=== PATIENT | female | born 1950 | race Caucasian/White ===

== ENCOUNTER 2020-07-11 17:35 | Emergency (ER) | payer MEDICARE, OTHER ==
[~2020-07-11 17:35] MED LIST: CYCLOBENZAPRINE10 MG PO; ETODOLAC ER500 MG PO; FLEXERIL 10 MG10 MG PO; FLOVENT 44 MCG7.9 GM INH; HYDROXYZINE HCL10 MG PO; MEDROL DOSEPAK 24 MG PO; MELATONIN5 MG PO; NABUMETONE750 MG PO; NEURONTIN 400400 MG PO; NORCO 7.5-3251 EACH PO; NORVASC 5 MG TAB5 MG PO; PHENERGAN 25 MG25 M1 PO; PRAVACHOL40 MG PO; PRILOSEC20 MG PO; REQUIP0.5 MG PO; SPIRIVA18 MCG PO; XARELTO10 MG PO; ZESTORETIC 20-1 EACH PO; ZITHROMAX500 MG PO
[2020-07-11 19:42] LABS: HEMOGLOBIN 15.4 gm/dl (12.3-15.3); RED BLOOD COUNT 4.77 M/UL (4.00-5.10); WHITE BLOOD COUNT 10.9 K/UL (4.5-11.0)
== END 2020-07-11 20:48 | disposition short-term general hospital (02) ==
LOC: ER1 17:35
PROVIDERS: Preventive Medicine Occupational Medicine
DX: I63.9 Cerebral infarction, unspecified (principal); J44.9 Chronic obstructive pulmonary disease, unspecified; I10 Essential (primary) hypertension; F17.210 Nicotine dependence, cigarettes, uncomplicated; Z20.822 Contact with and (suspected) exposure to COVID-19
CPT/HCPCS: 36415; 70450; 80053; 85025; 85610; 85730; 87635; 93005; 99285

== ENCOUNTER 2020-07-26 15:58 | Inpatient (IN) | payer MEDICARE, OTHER ==
[~2020-07-26] VITALS: Ht 162.6 cm; Wt 81.4 kg
[2020-07-26 20:34] LABS: HEMOGLOBIN 16.5 gm/dl (12.3-15.3); RED BLOOD COUNT 5.08 M/UL (4.00-5.10); WHITE BLOOD COUNT 12.5 K/UL (4.5-11.0)
[2020-07-27 02:06] LABS: BUN/CREATININE RATIO 15 (0-10)
[2020-07-27] MEDS ORDERED: ZOFRAN 4 MG TAB4 MG PO (02:55)
[2020-07-27] MEDS ORDERED: PROTONIX40 MG PO (02:56)
[2020-07-27] MEDS ORDERED: ATENOLOL25 MG PO (02:57)
[2020-07-27 07:46] LABS: BUN/CREATININE RATIO 17 (0-10)
[2020-07-27] MEDS ORDERED: PLAVIX 75 MG TA75 MG PO (10:43)
[2020-07-27] MEDS ORDERED: HYDRALAZINE HCL10 MG PO (10:43)
[2020-07-27] MEDS ORDERED: LIPITOR80 MG PO (10:43)
[2020-07-27] MEDS ORDERED: TENORMIN 25 MG25 MG PO (10:44)
[2020-07-27] MEDS ORDERED: LASIX40 MG PO (10:44)
[2020-07-27] MEDS ORDERED: ASPIR-TRIN325 MG PO (10:45)
[2020-07-27] MEDS ORDERED: GABAPENTIN400 MG PO (10:45)
[2020-07-27] MEDS ORDERED: MELATONIN10 M2 PO (10:46)
[2020-07-27] MEDS ORDERED: HYDROCODON-ACE1 EAC4 PO (10:46)
[2020-07-27] MEDS ORDERED: MOTRIN IB200 MG PO (10:47)
[2020-07-27] MEDS ORDERED: NICOTINE PATCH1 EAC5 TD (10:47)
[2020-07-27] MEDS ORDERED: LISINOPRIL20 MG PO (10:48)
[2020-07-27] MEDS ORDERED: OXYGEN (10:48)
[2020-07-27] MEDS ORDERED: MEGACE TAB 40 M40 MG PO (10:49)
[2020-07-27] MEDS ORDERED: XANAX0.25 MG PO (10:49)
[2020-07-27] MEDS ORDERED: BUSPIRONE HCL5 MG PO (10:49)
[2020-07-27] MEDS ORDERED: PEPCID40 MG PO (10:50)
[2020-07-27] MEDS ORDERED: PROBIOTIC1 EAC1 PO (10:50)
[2020-07-28 07:03] LABS: HEMOGLOBIN 14.5 gm/dl (12.3-15.3); RED BLOOD COUNT 4.5 M/UL (4.00-5.10); WHITE BLOOD COUNT 9.4 K/UL (4.5-11.0)
[2020-07-28] MEDS ORDERED: ZOFRAN 4 MG TAB4 MG PO (11:29)
== END 2020-07-28 14:06 | disposition home or self-care (01) | DRG 683 ==
LOC: ER1 15:58 → CDU 20:44 → MED SURG 4 07-27 16:39
PROVIDERS: Emergency Medicine; Internal Medicine; ADMIT Internal Medicine
DX: N17.9 Acute kidney failure, unspecified (principal); E87.2 Acidosis; R11.0 Nausea; I65.21 Occlusion and stenosis of right carotid artery; K82.8 Other specified diseases of gallbladder; I25.10 Atherosclerotic heart disease of native coronary artery without angina pectoris; I12.9 Hypertensive chronic kidney disease with stage 1 through stage 4 chronic kidney disease, or unspecified chronic kidney disease; N18.9 Chronic kidney disease, unspecified; F41.9 Anxiety disorder, unspecified; G89.29 Other chronic pain; F11.90 Opioid use, unspecified, uncomplicated; E78.5 Hyperlipidemia, unspecified; F17.210 Nicotine dependence, cigarettes, uncomplicated; K21.9 Gastro-esophageal reflux disease without esophagitis; J44.9 Chronic obstructive pulmonary disease, unspecified; G62.9 Polyneuropathy, unspecified; F32.9 Major depressive disorder, single episode, unspecified; Z20.822 Contact with and (suspected) exposure to COVID-19; Z79.01 Long term (current) use of anticoagulants; Z79.899 Other long term (current) drug therapy; Z96.649 Presence of unspecified artificial hip joint; Z83.3 Family history of diabetes mellitus; Z79.82 Long term (current) use of aspirin; Z86.73 Personal history of transient ischemic attack (TIA), and cerebral infarction without residual deficits
CPT/HCPCS: 36415; 80048; 80053; 80307; 81001; 82550; 82553; 82570; 83874; 83930; 83935; 83970; 84300; 84439; 84443; 84484; 84550; 85025; 85652; 86140; 89050; 96374; 97161; 99285; J0696; J1644; J2405; U0002

== ENCOUNTER → 2020-09-11 | Outpatient (CLI) | payer MEDICARE ==
[~2020-09-11] MED LIST changes: +ASPIR-TRIN325 MG PO; +ATENOLOL25 MG PO; +BUSPIRONE HCL5 MG PO; +CEPHALEXIN500 M1 PO; +GABAPENTIN400 MG PO; +HYDRALAZINE HCL10 MG PO; +HYDROCODON-ACE1 EAC4 PO; +LASIX40 MG PO; +LIPITOR80 MG PO; +LISINOPRIL20 MG PO; +MEGACE TAB 40 M40 MG PO; +MELATONIN10 M2 PO; +MOTRIN IB200 MG PO; +NICOTINE PATCH1 EAC5 TD; +ONDANSETRON ODT4 MG SL; +OXYGEN; +PEPCID40 MG PO; +PLAVIX 75 MG TA75 MG PO; +PROBIOTIC1 EAC1 PO; +PROTONIX40 MG PO; +TENORMIN 25 MG25 MG PO; +XANAX0.25 MG PO; +ZOFRAN 4 MG TAB4 MG PO
== END ==
LOC: RAD 08:00
DX: R10.31 Right lower quadrant pain (principal)
CPT/HCPCS: 74018

== ENCOUNTER → 2020-09-17 | Outpatient (CLI) | payer MEDICARE | LOC: US 08:00 → NM 09:00 | DX: R11.0 Nausea (principal) | CPT/HCPCS: 76705; 78226; A9537 ==

== ENCOUNTER 2020-11-29 23:13 | Emergency (ER) | payer MEDICARE ==
[~2020-11-29 23:13] MED LIST changes: -CEPHALEXIN500 M1 PO; -ONDANSETRON ODT4 MG SL
[2020-11-30 00:32] LABS: HEMOGLOBIN 16.2 gm/dl (12.3-15.3); RED BLOOD COUNT 5.16 M/UL (4.00-5.10); WHITE BLOOD COUNT 15.6 K/UL (4.5-11.0)
[2020-11-30 00:48] LABS: BUN/CREATININE RATIO 21 (0-10)
[2020-11-30] MEDS ORDERED: ONDANSETRON ODT4 MG SL (04:50)
[2020-11-30] MEDS ORDERED: CEPHALEXIN500 M1 PO (04:50)
== END 2020-11-30 05:20 | disposition home or self-care (01) ==
LOC: ER1 23:13
PROVIDERS: Physician Assistant
DX: J44.1 Chronic obstructive pulmonary disease with (acute) exacerbation (principal); N39.0 Urinary tract infection, site not specified; R41.82 Altered mental status, unspecified; I10 Essential (primary) hypertension; Z86.73 Personal history of transient ischemic attack (TIA), and cerebral infarction without residual deficits; Z90.89 Acquired absence of other organs; Z20.822 Contact with and (suspected) exposure to COVID-19
CPT/HCPCS: 0240U; 70450; 71045; 80053; 81001; 82550; 82553; 82803; 83874; 84484; 85025; 87086; 93005; 94640; 94664; 96374; 96375; 99285; J2405; J2930

== ENCOUNTER 2021-01-18 07:05 | Inpatient (IN) | payer MEDICARE ==
[~2021-01-18] VITALS: Ht 165.1 cm; Wt 73.5 kg
[~2021-01-18 07:05] MED LIST changes: +CEPHALEXIN500 M1 PO; +ONDANSETRON ODT4 MG SL
[2021-01-18 08:08] LABS: RED BLOOD COUNT 5.19 M/UL (4.00-5.10); WHITE BLOOD COUNT 25.7 K/UL (4.5-11.0)
[2021-01-18 08:34] LABS: BUN/CREATININE RATIO 11 (0-10)
[2021-01-19 04:07] LABS: HEMOGLOBIN 13.2 gm/dl (12.3-15.3)
[2021-01-19 04:10] LABS: RED BLOOD COUNT 4.55 M/UL (4.00-5.10); WHITE BLOOD COUNT 15.8 K/UL (4.5-11.0)
[2021-01-19 04:34] LABS: BUN/CREATININE RATIO 21 (0-10)
[2021-01-19] MEDS ORDERED: NAMENDA 5 MG TAB5 MG PO (08:46)
[2021-01-19] MEDS ORDERED: METOPROLOL SUCC50 MG PO (08:48)
[2021-01-19] MEDS ORDERED: ONDANSETRON HCL8 MG PO (08:49)
[2021-01-19] MEDS ORDERED: DONEPEZIL HCL10 MG PO (08:50)
[2021-01-19] MEDS ORDERED: VENTOLIN HFA 66.7 GM INH (08:51)
[2021-01-19] MEDS ORDERED: AMLODIPINE BESY10 MG PO (08:52)
[2021-01-19] MEDS ORDERED: PEPCID20 MG PO (08:56)
[2021-01-19] MEDS ORDERED: LASIX20 MG PO (09:14)
[2021-01-20 06:00] LABS: HEMOGLOBIN 11.5 gm/dl (12.3-15.3); WHITE BLOOD COUNT 11.9 K/UL (4.5-11.0)
[2021-01-20 06:01] LABS: RED BLOOD COUNT 3.98 M/UL (4.00-5.10)
[2021-01-20 06:30] LABS: BUN/CREATININE RATIO 16 (0-10)
[2021-01-21 03:43] LABS: HEMOGLOBIN 13.3 gm/dl (12.3-15.3); WHITE BLOOD COUNT 14.5 K/UL (4.5-11.0)
[2021-01-21 03:56] LABS: RED BLOOD COUNT 4.61 M/UL (4.00-5.10)
[2021-01-21 04:19] LABS: BUN/CREATININE RATIO 14 (0-10)
[2021-01-22 04:06] LABS: HEMOGLOBIN 12.9 gm/dl (12.3-15.3); RED BLOOD COUNT 4.4 M/UL (4.00-5.10)
[2021-01-22 04:29] LABS: BUN/CREATININE RATIO 14 (0-10)
[2021-01-22] MEDS ORDERED: AUGMENTIN 875-1 EACH PO (11:51)
[2021-01-22] MEDS ORDERED: MEDROL DOSEPAK 24 MG PO (11:51)
[2021-01-22] MEDS ORDERED: IPRAT-ALBUT 0.5-3 ML NEB (11:51)
== END 2021-01-22 14:45 | disposition home health service (06) | DRG 871 ==
LOC: ER1 07:05 → CDU 09:26 → PROG CARE 09:26
PROVIDERS: Emergency Medicine; Internal Medicine; ADMIT Internal Medicine
PROC: 5A09357 Assistance with Respiratory Ventilation, Less than 24 Consecutive Hours, Continuous Positive Airway Pressure (ICD-10-PCS; principal; 2021-01-18)
PROC: 5A0945A Assistance with Respiratory Ventilation, 24-96 Consecutive Hours, High Flow/Velocity Cannula (ICD-10-PCS; 2021-01-19)
DX: A41.9 Sepsis, unspecified organism (principal); J18.9 Pneumonia, unspecified organism; Z20.822 Contact with and (suspected) exposure to COVID-19; J96.21 Acute and chronic respiratory failure with hypoxia; E87.2 Acidosis; J44.0 Chronic obstructive pulmonary disease with (acute) lower respiratory infection; J44.1 Chronic obstructive pulmonary disease with (acute) exacerbation; I25.10 Atherosclerotic heart disease of native coronary artery without angina pectoris; F41.9 Anxiety disorder, unspecified; G89.29 Other chronic pain; E78.5 Hyperlipidemia, unspecified; Z96.643 Presence of artificial hip joint, bilateral; K21.9 Gastro-esophageal reflux disease without esophagitis; I10 Essential (primary) hypertension; I65.29 Occlusion and stenosis of unspecified carotid artery; F17.210 Nicotine dependence, cigarettes, uncomplicated; Z86.73 Personal history of transient ischemic attack (TIA), and cerebral infarction without residual deficits; Z79.01 Long term (current) use of anticoagulants; Z79.82 Long term (current) use of aspirin; Z79.899 Other long term (current) drug therapy; Z82.49 Family history of ischemic heart disease and other diseases of the circulatory system; Z95.1 Presence of aortocoronary bypass graft
CPT/HCPCS: 36415; 36600; 70450; 71045; 71250; 80048; 80053; 80076; 80202; 81001; 82550; 82553; 82803; 83605; 83874; 83880; 84484; 85025; 86140; 87040; 90732; 93005; 94640; 94660; 94664; 94760; 96374; 96375; 97161; 99285; G0009; J0692; J1650; J2920; J3370; J7030; J7070; U0002

== ENCOUNTER → 2021-03-04 | Outpatient (CLI) | payer MEDICARE, MEDICAID ==
[~2021-03-04] MED LIST changes: +AMLODIPINE BESY10 MG PO; +AUGMENTIN 875-1 EACH PO; +DONEPEZIL HCL10 MG PO; +IPRAT-ALBUT 0.5-3 ML NEB; +LASIX20 MG PO; +METOPROLOL SUCC50 MG PO; +NAMENDA 5 MG TAB5 MG PO; +ONDANSETRON HCL8 MG PO; +PEPCID20 MG PO; +VENTOLIN HFA 66.7 GM INH
== END ==
LOC: LBRF 17:01 → LAB 17:01
DX: N18.31 Chronic kidney disease, stage 3a (principal); N39.0 Urinary tract infection, site not specified
CPT/HCPCS: 81001

== ENCOUNTER 2021-03-12 08:04 | Inpatient (IN) | payer MEDICARE ==
[~2021-03-12] VITALS: Ht 162.6 cm; Wt 81.6 kg
[~2021-03-12 08:04] MED LIST changes: -LASIX20 MG PO
[2021-03-12 08:41] LABS: HEMOGLOBIN 14.2 gm/dl (12.3-15.3); RED BLOOD COUNT 4.85 M/UL (4.00-5.10); WHITE BLOOD COUNT 19.1 K/UL (4.5-11.0)
[2021-03-12 09:00] LABS: BUN/CREATININE RATIO 13 (0-10)
[2021-03-12] MEDS ORDERED: IPRAT-ALBUT 0.5-3 ML INH (14:13)
[2021-03-12] MEDS ORDERED: METOPROLOL SUCC50 MG PO (14:17)
--- NOTE | 2021-03-12 17:18 | NUR ---
DR ENRIQUEZ MADE AWARE OF INCREASING LACTIC ACID LEVEL, NEW ORDER TO CONSULT INFECTOUS DISEASE MD
[2021-03-12 20:22] LABS: BUN/CREATININE RATIO 14 (0-10)
--- NOTE | 2021-03-13 00:23 | NUR ---
2044 ARRIVED FROM PCU. REPORT WAS RECEIVED AND CARE RESUMED. NO DISTRESS OR DISCOMFORT NOTED OR VERBALIZED. ALL IMMEDIATE PLANS AND PROCEDURES EXPLAINED TO PATIENT AND DAUGHTER FARHANA. ENCOURAGED TO REPORT ANY NEEDS OR CONCERNS. VERBALIZED UNDERSTANDING. 2129 DAUGHTER EXPRESSED CONCERN THAT MEDICATIONS TAKEN AT BEDTIME MAY NOT HAVE BEEN RECONCILED . SPECIFICALLY MELATONIN AND NEURONTIN. BEDTIME XANAX WAS ADMINISTERED . DAUGHTER STATED OK TO WAIT UNTIL AM FOR OTHER MEDICATIONS TO BE ADDRESSED. NO FURTHER AT THIS TIME.
--- NOTE | 2021-03-13 01:30 | NUR ---
C/O SORE ON HER BUTTOCK. EXAMINED , THERE WAS A BARELY VISIBLE AREA. POSSILY A PIMPLE . NOT OPEN , NO DRAINAGE. [employer]ESS[employer] WAS APPLIED TO PROVIDE PADDING FOR COMFORT.
[2021-03-13 05:37] LABS: HEMOGLOBIN 9.7 gm/dl (12.3-15.3); RED BLOOD COUNT 3.38 M/UL (4.00-5.10); WHITE BLOOD COUNT 12.4 K/UL (4.5-11.0)
[2021-03-13 05:40] LABS: BUN/CREATININE RATIO 13 (0-10)
[2021-03-14 05:16] LABS: HEMOGLOBIN 9.7 gm/dl (12.3-15.3); RED BLOOD COUNT 3.17 M/UL (4.00-5.10); WHITE BLOOD COUNT 9.7 K/UL (4.5-11.0)
[2021-03-14 07:06] LABS: BUN/CREATININE RATIO 8 (0-10)
--- NOTE | 2021-03-14 15:00 | NUR ---
PATIENT ARRIVES ON FLOOR PER ICU STAFF. NADN. FAMILY AT BEDSIDE. AGREE WITH ICU NURSE ASSESSMENT
[2021-03-15 03:09] LABS: HEMOGLOBIN 10.5 gm/dl (12.3-15.3); WHITE BLOOD COUNT 9.8 K/UL (4.5-11.0)
[2021-03-15 03:35] LABS: RED BLOOD COUNT 3.52 M/UL (4.00-5.10)
[2021-03-15 03:53] LABS: BUN/CREATININE RATIO 11 (0-10)
[2021-03-16 04:08] LABS: HEMOGLOBIN 11.2 gm/dl (12.3-15.3); RED BLOOD COUNT 3.72 M/UL (4.00-5.10); WHITE BLOOD COUNT 7.5 K/UL (4.5-11.0)
[2021-03-16 05:02] LABS: BUN/CREATININE RATIO 9 (0-10)
[2021-03-17 05:09] LABS: HEMOGLOBIN 10.9 gm/dl (12.3-15.3); RED BLOOD COUNT 3.69 M/UL (4.00-5.10); WHITE BLOOD COUNT 6.7 K/UL (4.5-11.0)
[2021-03-17 05:39] LABS: BUN/CREATININE RATIO 7 (0-10)
[2021-03-17] MEDS ORDERED: LEVOFLOXACIN750 MG PO (17:39)
[2021-03-17] MEDS ORDERED: PULMICORT0.5 MG/2 M INH (17:49)
== END 2021-03-17 18:41 | disposition home health service (06) | DRG 871 ==
LOC: ER1 08:04 → CDU 09:22 → PROG CARE 18:00 → CCU 21:07 → PROG CARE 03-14 14:49
PROVIDERS: Emergency Medicine; Physician Assistant Medical; ADMIT Internal Medicine
PROC: B24BZZZ Ultrasonography of Heart with Aorta (ICD-10-PCS; principal; 2021-03-14)
DX: A41.53 Sepsis due to Serratia (principal); J96.21 Acute and chronic respiratory failure with hypoxia; J15.6 Pneumonia due to other Gram-negative bacteria; J69.0 Pneumonitis due to inhalation of food and vomit; J44.0 Chronic obstructive pulmonary disease with (acute) lower respiratory infection; E87.2 Acidosis; Z20.822 Contact with and (suspected) exposure to COVID-19; Z66 Do not resuscitate; R65.20 Severe sepsis without septic shock; I10 Essential (primary) hypertension; E78.5 Hyperlipidemia, unspecified; E87.6 Hypokalemia; F03.90 Unspecified dementia, unspecified severity, without behavioral disturbance, psychotic disturbance, mood disturbance, and anxiety; F41.9 Anxiety disorder, unspecified; E83.42 Hypomagnesemia; R53.81 Other malaise; K21.9 Gastro-esophageal reflux disease without esophagitis; F17.210 Nicotine dependence, cigarettes, uncomplicated; R59.9 Enlarged lymph nodes, unspecified; Z96.643 Presence of artificial hip joint, bilateral; I25.10 Atherosclerotic heart disease of native coronary artery without angina pectoris; Z86.73 Personal history of transient ischemic attack (TIA), and cerebral infarction without residual deficits; Z79.01 Long term (current) use of anticoagulants; Z79.84 Long term (current) use of oral hypoglycemic drugs; Z79.82 Long term (current) use of aspirin; Z82.49 Family history of ischemic heart disease and other diseases of the circulatory system
CPT/HCPCS: 36415; 36600; 71045; 71046; 71260; 74230; 80048; 80053; 80202; 81001; 82550; 82553; 82803; 83605; 83735; 83874; 83880; 84132; 84484; 85025; 85027; 87040; 87070; 87077; 87081; 87086; 87186; 87205; 92610; 92611-GN; 94640; 94664; 94667; 94668; 94760; 96374; 99285; C1751; C9113; J0692; J1650; J1940; J1956; J2185; J2543; J3370; J3475; J7030; J7050; J7070; Q9967; U0002

== ENCOUNTER → 2021-03-26 | Outpatient (CLI) | payer MEDICARE ==
[~2021-03-26] MED LIST changes: +IPRAT-ALBUT 0.5-3 ML INH; +LEVOFLOXACIN750 MG PO; +PULMICORT0.5 MG/2 M INH
== END ==
LOC: LBRF 17:12
DX: N39.0 Urinary tract infection, site not specified (principal); R31.9 Hematuria, unspecified; R30.0 Dysuria
CPT/HCPCS: 81001; 87086

== ENCOUNTER → 2021-04-21 | Outpatient (CLI) | payer MEDICARE | LOC: EXRD 14:51 | DX: F41.9 Anxiety disorder, unspecified (principal); J44.9 Chronic obstructive pulmonary disease, unspecified; R06.02 Shortness of breath | CPT/HCPCS: 71046; 94060; 94729 ==

== ENCOUNTER → 2021-06-12 | Outpatient (CLI) | payer MEDICARE | LOC: KOH-I 04-28 15:00 → CT 06-05 13:00 → KOH-I 06-05 13:00 → CT 06-05 13:30 | DX: R59.0 Localized enlarged lymph nodes (principal) | CPT/HCPCS: 36415; 71260; 82565; Q9967 ==

== ENCOUNTER → 2021-07-02 | Day surgery (SDC) | payer MEDICARE | END | disposition home or self-care (01) | LOC: OR 07-01 09:00 | PROVIDERS: Internal Medicine Pulmonary Disease | PROC: BB4CZZZ Ultrasonography of Mediastinum (ICD-10-PCS; 2021-07-02) | PROC: 07D78ZX Extraction of Thorax Lymphatic, Via Natural or Artificial Opening Endoscopic, Diagnostic (ICD-10-PCS; principal; 2021-07-02 12:00) | DX: C34.12 Malignant neoplasm of upper lobe, left bronchus or lung (principal); Z20.822 Contact with and (suspected) exposure to COVID-19; I10 Essential (primary) hypertension; E78.5 Hyperlipidemia, unspecified; J44.9 Chronic obstructive pulmonary disease, unspecified; K21.9 Gastro-esophageal reflux disease without esophagitis; F17.210 Nicotine dependence, cigarettes, uncomplicated; G47.30 Sleep apnea, unspecified; Z79.02 Long term (current) use of antithrombotics/antiplatelets; Z79.82 Long term (current) use of aspirin; Z79.899 Other long term (current) drug therapy; Z86.73 Personal history of transient ischemic attack (TIA), and cerebral infarction without residual deficits | CPT/HCPCS: 87015; 87070; 87116; 87205; 87206; 87252; J2001; J2405; J2704; J7120 ==

== ENCOUNTER → 2021-07-17 | Outpatient (CLI) | payer MEDICARE | LOC: EMI 12:52 | DX: C34.12 Malignant neoplasm of upper lobe, left bronchus or lung (principal); G93.89 Other specified disorders of brain | CPT/HCPCS: 70553; A9577 ==

== ENCOUNTER → 2021-08-12 | Day surgery (SDC) | payer MEDICARE ==
[~2021-08-12] MED LIST changes: +ALBUTEROL NEBULIZER INH; +ASPIRIN325 MG PO; +GAS RELIEF125 M1 PO; +NAMENDA5 MG PO; +PROVENTIL HFA6.7 GM INH; +TOPROL XL50 MG PO
[2021-08-12 06:39] LABS: BUN/CREATININE RATIO 10 (0-10)
== END | disposition home or self-care (01) ==
LOC: OR 05:10
PROVIDERS: Surgery
PROC: 02HV33Z Insertion of Infusion Device into Superior Vena Cava, Percutaneous Approach (ICD-10-PCS; 2021-08-12)
PROC: 0JH60WZ Insertion of Totally Implantable Vascular Access Device into Chest Subcutaneous Tissue and Fascia, Open Approach (ICD-10-PCS; principal; 2021-08-12 07:30)
DX: C34.12 Malignant neoplasm of upper lobe, left bronchus or lung (principal); Z20.822 Contact with and (suspected) exposure to COVID-19; I10 Essential (primary) hypertension; E78.5 Hyperlipidemia, unspecified; J44.9 Chronic obstructive pulmonary disease, unspecified; K21.9 Gastro-esophageal reflux disease without esophagitis; E78.00 Pure hypercholesterolemia, unspecified; G47.30 Sleep apnea, unspecified; M19.90 Unspecified osteoarthritis, unspecified site; Z79.02 Long term (current) use of antithrombotics/antiplatelets; Z79.82 Long term (current) use of aspirin; Z79.84 Long term (current) use of oral hypoglycemic drugs; Z79.899 Other long term (current) drug therapy; Z86.73 Personal history of transient ischemic attack (TIA), and cerebral infarction without residual deficits; Z87.891 Personal history of nicotine dependence
CPT/HCPCS: 36415; 77001; 80048; 93005; C1769; C1788; J0690; J1100; J1642; J2001; J2370; J2405; J2704; J3010; J7040; J7120

== ENCOUNTER 2021-08-24 15:57 | Inpatient (IN) | payer MEDICARE ==
[~2021-08-24] VITALS: Ht 167.6 cm; Wt 73.9 kg
[2021-08-24 17:04] LABS: HEMOGLOBIN 12.7 gm/dl (12.3-15.3); RED BLOOD COUNT 3.97 M/UL (4.00-5.10); WHITE BLOOD COUNT 15.3 K/UL (4.5-11.0)
[2021-08-24 17:39] LABS: BUN/CREATININE RATIO 18 (0-10)
[2021-08-24] MEDS ORDERED: CEFDINIR300 MG PO (19:59)
[2021-08-24] MEDS ORDERED: AZITHROMYCIN500 MG PO (19:59)
[2021-08-24] MEDS ORDERED: ALPRAZOLAM0.5 MG PO (23:14)
[2021-08-24] MEDS ORDERED: AMLODIPINE BESY10 MG PO (23:15)
[2021-08-25 01:50] LABS: HEMOGLOBIN 10.9 gm/dl (12.3-15.3)
[2021-08-25 02:08] LABS: RED BLOOD COUNT 3.4 M/UL (4.00-5.10)
[2021-08-25 02:34] LABS: BUN/CREATININE RATIO 19 (0-10)
[2021-08-26 02:24] LABS: BUN/CREATININE RATIO 20 (0-10)
[2021-08-26 04:36] LABS: HEMOGLOBIN 8.9 gm/dl (12.3-15.3); RED BLOOD COUNT 2.8 M/UL (4.00-5.10); WHITE BLOOD COUNT 1.6 K/UL (4.5-11.0)
[2021-08-27 02:08] LABS: HEMOGLOBIN 9.6 gm/dl (12.3-15.3); RED BLOOD COUNT 3.02 M/UL (4.00-5.10)
[2021-08-27 02:19] LABS: WHITE BLOOD COUNT 0.9 K/UL (4.5-11.0)
[2021-08-27 02:41] LABS: BUN/CREATININE RATIO 16 (0-10)
[2021-08-28 04:38] LABS: HEMOGLOBIN 9.4 gm/dl (12.3-15.3); RED BLOOD COUNT 2.92 M/UL (4.00-5.10)
[2021-08-28 04:40] LABS: WHITE BLOOD COUNT 0.8 K/UL (4.5-11.0)
[2021-08-28 06:01] LABS: BUN/CREATININE RATIO 12 (0-10)
[2021-08-29 05:16] LABS: RED BLOOD COUNT 2.82 M/UL (4.00-5.10)
[2021-08-29 05:31] LABS: WHITE BLOOD COUNT 1.9 K/UL (4.5-11.0)
[2021-08-29 05:52] LABS: BUN/CREATININE RATIO 10 (0-10)
[2021-08-30 02:03] LABS: HEMOGLOBIN 9.2 gm/dl (12.3-15.3); RED BLOOD COUNT 2.89 M/UL (4.00-5.10)
[2021-08-30 02:04] LABS: WHITE BLOOD COUNT 3.7 K/UL (4.5-11.0)
[2021-08-30 03:02] LABS: BUN/CREATININE RATIO 11 (0-10)
[2021-08-30] MEDS ORDERED: BACTRIM DS TAB1 EACH PO (09:15)
== END 2021-08-30 11:04 | disposition home or self-care (01) | DRG 871 ==
LOC: ER1 15:57 → PROG CARE 20:16 → CDU 20:16 → PROG CARE 23:10
PROVIDERS: Family Medicine; Internal Medicine; ADMIT Internal Medicine
DX: A41.02 Sepsis due to Methicillin resistant Staphylococcus aureus (principal); J96.21 Acute and chronic respiratory failure with hypoxia; Z20.822 Contact with and (suspected) exposure to COVID-19; D61.810 Antineoplastic chemotherapy induced pancytopenia; J18.9 Pneumonia, unspecified organism; C34.92 Malignant neoplasm of unspecified part of left bronchus or lung; J44.0 Chronic obstructive pulmonary disease with (acute) lower respiratory infection; I69.352 Hemiplegia and hemiparesis following cerebral infarction affecting left dominant side; E44.0 Moderate protein-calorie malnutrition; I10 Essential (primary) hypertension; K21.9 Gastro-esophageal reflux disease without esophagitis; Z96.649 Presence of unspecified artificial hip joint; I25.10 Atherosclerotic heart disease of native coronary artery without angina pectoris; E78.5 Hyperlipidemia, unspecified; G47.33 Obstructive sleep apnea (adult) (pediatric); E87.6 Hypokalemia; F32.A Depression, unspecified; F41.9 Anxiety disorder, unspecified; T45.1X5A Adverse effect of antineoplastic and immunosuppressive drugs, initial encounter; R65.20 Severe sepsis without septic shock; Z99.81 Dependence on supplemental oxygen; Z82.49 Family history of ischemic heart disease and other diseases of the circulatory system; Z92.21 Personal history of antineoplastic chemotherapy; Z79.899 Other long term (current) drug therapy; Z68.28 Body mass index [BMI] 28.0-28.9, adult; Z87.891 Personal history of nicotine dependence
CPT/HCPCS: 0240U; 36415; 71046; 80048; 80053; 80202; 81001; 82550; 82553; 83605; 83735; 83880; 84100; 84132; 84439; 84443; 84484; 85025; 86140; 87040; 87070; 87077; 87086; 87186; 87205; 93005; 94640; 94664; 94760; 96374; 99285; C9113; J0456; J0692; J0696; J1650; J3370; J7030; J7070

== ENCOUNTER 2021-11-21 17:11 | Inpatient (IN) | payer MEDICARE ==
[~2021-11-21] VITALS: Ht 167.6 cm; Wt 80.3 kg
[~2021-11-21 17:11] MED LIST changes: +ALPRAZOLAM0.5 MG PO; +AZITHROMYCIN500 MG PO; +BACTRIM DS TAB1 EACH PO; +CEFDINIR300 MG PO
[2021-11-21 18:11] LABS: HEMOGLOBIN 11.2 gm/dl (12.3-15.3); RED BLOOD COUNT 3.65 M/UL (4.00-5.10); WHITE BLOOD COUNT 6.1 K/UL (4.5-11.0)
[2021-11-21 18:37] LABS: BUN/CREATININE RATIO 8 (0-10)
[2021-11-21] MEDS ORDERED: DONEPEZIL HCL10 MG PO (18:45)
[2021-11-21] MEDS ORDERED: CEPHALEXIN500 MG PO (18:48)
[2021-11-21] MEDS ORDERED: AZITHROMYCIN250 MG PO (18:48)
[2021-11-21] MEDS ORDERED: PREDNISONE10 MG PO (18:49)
[2021-11-22 06:23] LABS: HEMOGLOBIN 10.6 gm/dl (12.3-15.3); RED BLOOD COUNT 3.47 M/UL (4.00-5.10)
[2021-11-22 06:25] LABS: WHITE BLOOD COUNT 2.3 K/UL (4.5-11.0)
[2021-11-22 06:40] LABS: BUN/CREATININE RATIO 14 (0-10)
--- NOTE | 2021-11-22 15:33 | NUR ---
informed dr. velasquez that patient refused in and out cath because she had not urinated since this morning and that pm nurse had in and out cath her last night,patient stated this is normal for her not to urinate for long period of time and that she will let me know when she is ready. dr. velasquez acknowledged
--- NOTE | 2021-11-22 17:54 | NUR ---
patient stated she will try later and use the bathroom, she does not feel the need to urinate at this time. she refused to be in and out cath. denies pain when bladder palpated, nontender and not distended
--- NOTE | 2021-11-22 18:17 | NUR ---
performed bladder scanned and its >450 and stated she wanted to use bedside commode first before in and out cath amd that she felt like she is able to void.
[2021-11-23 04:31] LABS: HEMOGLOBIN 11.3 gm/dl (12.3-15.3); RED BLOOD COUNT 3.7 M/UL (4.00-5.10)
[2021-11-23 04:37] LABS: WHITE BLOOD COUNT 7.4 K/UL (4.5-11.0)
[2021-11-23 05:45] LABS: BUN/CREATININE RATIO 16 (0-10)
[2021-11-24 06:30] LABS: HEMOGLOBIN 13.2 gm/dl (12.3-15.3); WHITE BLOOD COUNT 7.3 K/UL (4.5-11.0)
[2021-11-24 06:40] LABS: RED BLOOD COUNT 4.31 M/UL (4.00-5.10)
[2021-11-24 06:48] LABS: BUN/CREATININE RATIO 19 (0-10)
[2021-11-24 18:10] LABS: ORGANISM ID Not indicated. (.); SPECIMEN SOURCE Urine (.); STREPTOCOCCUS PNEUMONIAE AG Negative (Negative)
[2021-11-25 06:41] LABS: HEMOGLOBIN 13.2 gm/dl (12.3-15.3); RED BLOOD COUNT 4.4 M/UL (4.00-5.10)
[2021-11-25 06:47] LABS: WHITE BLOOD COUNT 5.3 K/UL (4.5-11.0)
[2021-11-25 07:39] LABS: BUN/CREATININE RATIO 24 (0-10)
[2021-11-25] MEDS ORDERED: LEVOFLOXACIN750 MG PO (16:20)
[2021-11-25] MEDS ORDERED: DECADRON6 MG PO (16:25)
== END 2021-11-25 18:33 | disposition home or self-care (01) | DRG 177 ==
LOC: ER1 17:11 → CDU 18:26 → MED SURG 4 18:26
PROVIDERS: Emergency Medicine; ADMIT Internal Medicine
PROC: 8E0ZXY6 Isolation (ICD-10-PCS; principal; 2021-11-21)
PROC: XW033E5 Introduction of Remdesivir Anti-infective into Peripheral Vein, Percutaneous Approach, New Technology Group 5 (ICD-10-PCS; 2021-11-21)
PROC: 3E0333Z Introduction of Anti-inflammatory into Peripheral Vein, Percutaneous Approach (ICD-10-PCS; 2021-11-21)
DX: U07.1 COVID-19 (principal); J12.82 Pneumonia due to coronavirus disease 2019; J96.21 Acute and chronic respiratory failure with hypoxia; J15.9 Unspecified bacterial pneumonia; J44.0 Chronic obstructive pulmonary disease with (acute) lower respiratory infection; I69.352 Hemiplegia and hemiparesis following cerebral infarction affecting left dominant side; J44.1 Chronic obstructive pulmonary disease with (acute) exacerbation; C34.90 Malignant neoplasm of unspecified part of unspecified bronchus or lung; R53.81 Other malaise; K21.9 Gastro-esophageal reflux disease without esophagitis; D64.9 Anemia, unspecified; I25.10 Atherosclerotic heart disease of native coronary artery without angina pectoris; Z96.649 Presence of unspecified artificial hip joint; I10 Essential (primary) hypertension; Z92.21 Personal history of antineoplastic chemotherapy; Z92.3 Personal history of irradiation; Z99.81 Dependence on supplemental oxygen; Z98.890 Other specified postprocedural states; Z82.49 Family history of ischemic heart disease and other diseases of the circulatory system; Z87.891 Personal history of nicotine dependence; Z79.82 Long term (current) use of aspirin; Z79.02 Long term (current) use of antithrombotics/antiplatelets
CPT/HCPCS: 0240U; 36415; 36600; 71045; 80048; 80053; 80202; 81001; 82550; 82553; 82728; 82803; 83036; 83540; 83550; 83605; 83735; 83880; 84100; 84484; 85025; 85027; 85379; 85652; 86140; 86713; 87040; 87070; 87081; 87086; 87205; 87278; 87899; 93005; 94640; 94664; 94760; 96374; 97110; 97162; 99285; J0248; J1100; J1650; J2185; J3370; J7030; J7070; Q9967

== ENCOUNTER 2021-12-19 23:39 | Inpatient (IN) | payer MEDICARE ==
[~2021-12-19] VITALS: Ht 162.6 cm; Wt 72.6 kg
[~2021-12-19 23:39] MED LIST changes: +AZITHROMYCIN250 MG PO; +CEPHALEXIN500 MG PO; +DECADRON6 MG PO; +PREDNISONE10 MG PO
[2021-12-20 00:16] LABS: HEMOGLOBIN 12.6 gm/dl (12.3-15.3); RED BLOOD COUNT 4.19 M/UL (4.00-5.10); WHITE BLOOD COUNT 7.2 K/UL (4.5-11.0)
[2021-12-20 00:50] LABS: BUN/CREATININE RATIO 11 (0-10)
[2021-12-20] MEDS ORDERED: METOPROLOL SUCC50 MG PO (09:23)
--- NOTE | 2021-12-20 15:57 | NUR ---
Handing report off to Suazn on MS 5
[2021-12-21 07:03] LABS: HEMOGLOBIN 10.9 gm/dl (12.3-15.3)
[2021-12-21 07:04] LABS: RED BLOOD COUNT 3.72 M/UL (4.00-5.10); WHITE BLOOD COUNT 5.2 K/UL (4.5-11.0)
[2021-12-21 07:26] LABS: BUN/CREATININE RATIO 8 (0-10)
[2021-12-22 05:28] LABS: BUN/CREATININE RATIO 9 (0-10)
[2021-12-22 05:29] LABS: HEMOGLOBIN 11.5 gm/dl (12.3-15.3); RED BLOOD COUNT 3.9 M/UL (4.00-5.10); WHITE BLOOD COUNT 4.7 K/UL (4.5-11.0)
[2021-12-23 05:04] LABS: HEMOGLOBIN 9.9 gm/dl (12.3-15.3); WHITE BLOOD COUNT 4.4 K/UL (4.5-11.0)
[2021-12-23 05:07] LABS: RED BLOOD COUNT 3.4 M/UL (4.00-5.10)
[2021-12-23 05:42] LABS: BUN/CREATININE RATIO 10 (0-10)
[2021-12-24 03:50] LABS: HEMOGLOBIN 9.8 gm/dl (12.3-15.3); RED BLOOD COUNT 3.24 M/UL (4.00-5.10); WHITE BLOOD COUNT 4.3 K/UL (4.5-11.0)
[2021-12-24 04:16] LABS: BUN/CREATININE RATIO 11 (0-10)
[2021-12-24] MEDS ORDERED: AUGMENTIN 500-500 MG PO (12:14)
[2021-12-24] MEDS ORDERED: DOXYCYCLINE HY100 MG PO (12:14)
[2021-12-24] MEDS ORDERED: HUMIBID LA TAB600 MG PO (12:14)
--- NOTE | 2021-12-24 15:01 | NUR ---
SPOKE WITH CASE MANAGMENT REGARDING HOME HEALTH. CASE MANAGEMENT STATED HOME HEALTH WAS SET UP AND SHE WOULD FOLLOW UP WITH THEM.
== END 2021-12-24 14:57 | disposition home or self-care (01) | DRG 193 ==
LOC: ER1 23:39 → CDU 12-20 04:07 → M/S 12-20 04:07 → MED SURG 4 12-20 07:55 → M/S 12-20 16:12
PROVIDERS: Emergency Medicine; Internal Medicine; ADMIT Internal Medicine
DX: J18.9 Pneumonia, unspecified organism (principal); J96.21 Acute and chronic respiratory failure with hypoxia; J96.22 Acute and chronic respiratory failure with hypercapnia; Z20.822 Contact with and (suspected) exposure to COVID-19; N39.0 Urinary tract infection, site not specified; J44.0 Chronic obstructive pulmonary disease with (acute) lower respiratory infection; Z96.642 Presence of left artificial hip joint; K21.9 Gastro-esophageal reflux disease without esophagitis; I25.10 Atherosclerotic heart disease of native coronary artery without angina pectoris; I10 Essential (primary) hypertension; E78.5 Hyperlipidemia, unspecified; F03.90 Unspecified dementia, unspecified severity, without behavioral disturbance, psychotic disturbance, mood disturbance, and anxiety; Z85.118 Personal history of other malignant neoplasm of bronchus and lung; Z79.82 Long term (current) use of aspirin; Z79.01 Long term (current) use of anticoagulants; Z99.81 Dependence on supplemental oxygen
CPT/HCPCS: 36415; 71045; 80048; 80053; 80202; 81001; 82607; 82728; 82746; 83540; 83550; 83605; 83735; 84100; 85025; 86140; 87040; 87070; 87077; 87086; 87186; 87205; 93005; 94640; 94760; 96365; 96375; 96376; 99285; J0692; J1650; J2185; J2550; J3370; J7050; J7070; Q9967

== ENCOUNTER 2021-12-27 22:49 | Emergency (ER) | payer MEDICARE ==
[~2021-12-27 22:49] MED LIST changes: +AUGMENTIN 500-500 MG PO; +DOXYCYCLINE HY100 MG PO; +HUMIBID LA TAB600 MG PO
[2021-12-28 00:08] LABS: RED BLOOD COUNT 4.01 M/UL (4.00-5.10); WHITE BLOOD COUNT 12.9 K/UL (4.5-11.0)
[2021-12-28 00:38] LABS: BUN/CREATININE RATIO 14 (0-10)
[2021-12-28 00:40] LABS: HEMOGLOBIN 11.8 gm/dl (12.3-15.3)
== END 2021-12-28 04:15 | disposition home or self-care (01) ==
LOC: ER1 22:49
PROVIDERS: Family Medicine
DX: F03.90 Unspecified dementia, unspecified severity, without behavioral disturbance, psychotic disturbance, mood disturbance, and anxiety (principal); C34.90 Malignant neoplasm of unspecified part of unspecified bronchus or lung; J44.9 Chronic obstructive pulmonary disease, unspecified; I25.10 Atherosclerotic heart disease of native coronary artery without angina pectoris; I10 Essential (primary) hypertension; E78.5 Hyperlipidemia, unspecified; K21.9 Gastro-esophageal reflux disease without esophagitis; Z87.01 Personal history of pneumonia (recurrent); Z96.642 Presence of left artificial hip joint; Z87.891 Personal history of nicotine dependence
CPT/HCPCS: 71045; 80053; 82550; 82553; 84484; 85025; 93005; 99285

== ENCOUNTER 2022-01-03 21:34 | Inpatient (IN) | payer MEDICARE ==
[~2022-01-03] VITALS: Ht 162.6 cm; Wt 75.3 kg
[2022-01-03 22:29] LABS: HEMOGLOBIN 11.2 gm/dl (12.3-15.3); RED BLOOD COUNT 3.81 M/UL (4.00-5.10); WHITE BLOOD COUNT 8.8 K/UL (4.5-11.0)
[2022-01-03 22:50] LABS: BUN/CREATININE RATIO 12 (0-10)
[2022-01-04] MEDS ORDERED: VIBRAMYCIN100 MG PO (01:06)
[2022-01-04] MEDS ORDERED: OMNICEF 300 MG300 MG PO (01:06)
[2022-01-04] MEDS ORDERED: ONDANSETRON HCL8 MG PO (09:47)
[2022-01-05 04:48] LABS: HEMOGLOBIN 8.9 gm/dl (12.3-15.3); RED BLOOD COUNT 3.05 M/UL (4.00-5.10); WHITE BLOOD COUNT 3.9 K/UL (4.5-11.0)
[2022-01-05 05:26] LABS: BUN/CREATININE RATIO 8 (0-10)
[2022-01-06 06:29] LABS: HEMOGLOBIN 9.3 gm/dl (12.3-15.3); RED BLOOD COUNT 3.19 M/UL (4.00-5.10); WHITE BLOOD COUNT 4.5 K/UL (4.5-11.0)
[2022-01-06 06:44] LABS: BUN/CREATININE RATIO 8 (0-10)
[2022-01-07 07:56] LABS: BUN/CREATININE RATIO 7 (0-10)
[2022-01-07 08:09] LABS: HEMOGLOBIN 9.9 gm/dl (12.3-15.3); RED BLOOD COUNT 3.45 M/UL (4.00-5.10); WHITE BLOOD COUNT 4.2 K/UL (4.5-11.0)
[2022-01-07] MEDS ORDERED: POLYETHYLENE GL17 GM PO (11:41)
[2022-01-07] MEDS ORDERED: FERROUS SULFAT325 M2 PO (11:41)
[2022-01-07] MEDS ORDERED: OMNICEF 300 MG300 MG PO (11:41)
[2022-01-07] MEDS ORDERED: METOPROLOL SUC100 MG PO (11:41)
[2022-01-07] MEDS ORDERED: BUDESONIDE0.5 MG/2 M NEB (11:41)
[2022-01-07] MEDS ORDERED: GABAPENTIN300 MG PO (11:41)
[2022-01-07] MEDS ORDERED: IPRAT-ALBUT 0.5-3 ML NEB (11:41)
[2022-01-07] MEDS ORDERED: PERCOCET 5/325 T1 EA PO (16:54)
== END 2022-01-07 17:24 | disposition home health service (06) | DRG 193 ==
LOC: ER1 21:34 → MED SURG 4 01-04 02:35 → CDU 01-04 02:35 → MED SURG 4 01-04 03:31
PROVIDERS: Internal Medicine; Physician Assistant Medical; ADMIT Internal Medicine
DX: J18.9 Pneumonia, unspecified organism (principal); J96.21 Acute and chronic respiratory failure with hypoxia; Z20.822 Contact with and (suspected) exposure to COVID-19; C34.90 Malignant neoplasm of unspecified part of unspecified bronchus or lung; I25.110 Atherosclerotic heart disease of native coronary artery with unstable angina pectoris; J44.0 Chronic obstructive pulmonary disease with (acute) lower respiratory infection; C77.9 Secondary and unspecified malignant neoplasm of lymph node, unspecified; C78.7 Secondary malignant neoplasm of liver and intrahepatic bile duct; C79.51 Secondary malignant neoplasm of bone; Z51.5 Encounter for palliative care; I10 Essential (primary) hypertension; G89.29 Other chronic pain; E78.00 Pure hypercholesterolemia, unspecified; M54.9 Dorsalgia, unspecified; K21.9 Gastro-esophageal reflux disease without esophagitis; F03.90 Unspecified dementia, unspecified severity, without behavioral disturbance, psychotic disturbance, mood disturbance, and anxiety; Z96.642 Presence of left artificial hip joint; R53.81 Other malaise; Z99.81 Dependence on supplemental oxygen; Z86.73 Personal history of transient ischemic attack (TIA), and cerebral infarction without residual deficits
CPT/HCPCS: 36415; 71045; 72100; 80048; 80053; 80202; 82550; 82553; 83540; 83550; 83605; 83735; 83880; 84100; 84132; 84484; 85025; 85027; 87040; 87070; 87081; 87205; 92610; 93005; 94640; 94664; 94760; 94762; 96374; 97116; 97161; 97165; 99285; J1650; J2185; J2543; J3370; J7070; Q9967; U0002